=== PATIENT | female | born 1945 | race Caucasian/White ===

== ENCOUNTER 2018-06-12 16:12 | Outpatient (CLI) | payer MEDICARE ==
--- NOTE | 2018-06-12 16:40 | RAD ---
THREE VIEW LEFT SHOULDER 06/12/18 INDICATION: Pain. FINDINGS: There is no fracture or dislocation. There is vascular calcification incidentally noted. Left lung is clear where visualized. IMPRESSION: No acute osseous abnormality left shoulder. POS: [facility]
--- NOTE | 2018-06-12 16:44 | RAD ---
ACUTE ABDOMINAL SERIES FRONTAL VIEW CHEST TWO VIEW ABDOMEN 06/12/18 INDICATION: Pain. FINDINGS: Lung bases are clear where visualized. There is no free air. Bowel gas pattern is nonobstructed. IMPRESSION: No acute process. POS: [facility]
== END 2018-06-12 16:13 | disposition home or self-care (01) ==
LOC: SCSRAD 16:12
PROVIDERS: ATTEND Family Medicine
DX: M25.512 Pain in left shoulder (principal); R10.31 Right lower quadrant pain; R10.11 Right upper quadrant pain
CPT/HCPCS: 74019